=== PATIENT | female | born 1980 | race Caucasian/White ===

== ENCOUNTER 2021-01-02 16:31 | Inpatient (IN) | payer MEDICAID, SELFPAY ==
[2021-01-02 16:36] VITALS: BP 138/79; PULSE 108; RESP 18; TEMP 36.8; O2SAT 97; BMI 23.0
--- NOTE | 2021-01-02 18:11 | PC.NURSE ---
Patient is a 40 year old female that presents as a direct admit from [facility] in [place], accompanied with father for complaint of MHE. Patient has been having paranoid delusional thought process, flat affect with anxiety. Patient explains that she is hearing voices in her head and in her ears. Patient does not know what they are saying and does not want to talk more about it. Patient is reluctant to talk to admitting nurse about health history. Patient did state that she feels she is in danger and that someone is going to kill her. Denies SI at this time.
--- NOTE | 2021-01-02 19:36 | PC.NURSE ---
Pt's mother called to check on pt. Update given that pt is resting quietly. Pt's behavior has been reported stable by off going shift since arrival. Pt's mother given the pt phone number and hours that pt may use/talk on the phone.
[2021-01-02] MEDS: metoprolol tartrate 50 mg Tablet PO (20:49)
[2021-01-02] MEDS: OLANZapine 5 mg ODT PO (20:49)
--- NOTE | 2021-01-02 20:55 | PC.NURSE ---
pt given Zyprexa 5mg po for noted increased anxiety. Pt noted to be very guarded, peering under benches, around corners. Pt had RN show her there was nothing to fear from the linen barrel or linen cabinet.
[2021-01-02 21:21] VITALS: BP 108/81; PULSE 107; RESP 16; TEMP 37.1; O2SAT 96
[2021-01-03] MEDS: trazodone 50 mg Tablet PO (00:12)
[2021-01-03] MEDS: hyDROXYzine 25 mg Capsule 50 MG PO ×3 (00:12→21:36)
--- NOTE | 2021-01-03 00:12 | PC.NURSE ---
pt continues with increased anxiety noted, unable to sleep. Trazodone 50mg po and Vistaril 50mg po given.
[2021-01-03] MEDS: ondansetron 4 MG Tablet PO (00:43)
--- NOTE | 2021-01-03 00:43 | PC.NURSE ---
pt c/o nausea, zofran 4mg po given
[2021-01-03] MEDS: haloperidol 5 mg Tablet PO (01:37)
--- NOTE | 2021-01-03 01:38 | PC.NURSE ---
pt noted with continued paranoias, hearing loud noises, thinking something is going to get her. pt shown to reassure her that doors are lock, windows are locked and covered, other pt's are sleeping. Pt still voiced concern for her safety, so pt was moved to a room closest to the nurses desk (rm [id number]).
--- NOTE | 2021-01-03 01:42 | PC.NURSE ---
pt was also given Haldol 5mg po at this time.
[2021-01-03 05:06] VITALS: BP 130/85; PULSE 118; RESP 210; TEMP 37; O2SAT 97
[2021-01-03] MEDS: metoprolol tartrate 50 mg Tablet PO ×2 (08:48→21:37)
--- NOTE | 2021-01-03 10:53 | P.HP_ITS ---
Providers/Chief Complaint Admitting Physician: Aden Epstein DO Primary Care Provider: Wilian Chang MD Chief Complaint: PSYCHOSIS HPI NPU History of Present Illness Solitario Araujo is a 40 year old female with longstanding history of substance abuse presented to an [facility] emergency department with unclear report of suicidal ideation in the context of worsening psychotic symptoms including paranoia and auditory hallucinations. Patient states that she believes people are following her and watching her and out to get her. Patient also reports ongoing depressive symptoms with intermittent passive suicidal thoughts with no active intent or plan and no past history of suicide attempt or self-harm behavior. Patient reports last use of substances including marijuana, Adderall and something that she thought was Percocet but she is not sure was approximately 5 days ago. Patient states that she has been having ongoing paranoia as well as auditory hallucinations. She also reports worsening depressive symptoms with increasing impairment. Patient states that she has had a couple of occasions in which she has been sober for approximately 6 weeks and continues to have episodes of flight of ideas, stating that she feels like she has not her normal self but has difficulty describing any discrete hypomanic or manic episodes. Psychiatric review of systems is otherwise negative. Patient reports currently living with boyfriend and one of her children but states that she has her other 2 children on occasion. Review of Systems General: Reports: 10 or more systems reviewed and unremarkable except in HPI and below Meds NPU Home Medications Medication Instructions Recorded Confirmed Last Taken Type metoprolol tartrate [Lopressor] 50 mg PO BID 01/02/21 01/02/21 01/02/21 08:14 History 50 mg Allergies Allergy/AdvReac Type Severity Reaction Status Date / Time brompheniramine Allergy ADR-Halluci Verified 01/02/21 17:24 nating phenylpropanolamine Allergy ADR-Halluci Verified 01/02/21 17:24 nating pseudoephedrine Allergy ADR-Agitate Verified 01/02/21 17:24 d PFSH NPU PFSH: Family History Mother Allergies Depression Hypertension Sister Allergies Hyperlipidemia Grandfather Diabetes Grandmother Diabetes Hypertension Social History Smoking and tobacco status: current every day smoker cigarettes Packs smoked per day: 1 Years cigarettes smoked: 20 Quit status (tobacco): not considering quitting Second hand smoke exposure: No Smoking risk assessment/counseling performed?: Yes Alcohol intake: former Year of sobriety/quit date alcohol: 2018 Desire information about alcohol rehabilitation?: No Counseling given: No Last alcohol use date: 12/31/17 Substance/Drug Use: current Substance/Drug use frequency: other Substance/Drug use type: Marijuana, Crack/Cocaine, Amphetamines, Sedatives, Opiates and Methamphetamine Desire information about substance/drug rehabilitation?: No Counseling given: No Adopted: No Caregiver/support person: Yes Lives independently: No Household members: family Housing: House Marital status: Single Highest education level completed: High School Graduate service: No Current occupational status: unemployed History of recent travel: No Special eneida needs: No Agree to transfusion: No Other Psychiatric History: Other Psychiatric History: Patient states that is been a couple of years since the last time she saw a psychiatrist or therapist Reports being noncompliant with past medication and medication management follow-up Reports last psychiatric hospitalization was several years ago Denies any past history of suicide attempts or self-harm behavior Mental Status Exam MSE Comments: Thin, appropriately groomed and dressed wearing hospital scrubs, quiet, averted gaze at times, calm, cooperative Psychomotor activity is decreased, no agitation Speech is low volume, normal rate, spontaneous, clear articulation, not pressured I am okay, constricted affect, not labile Alert and oriented to person, place, time, situation Memory and concentration appear to be fair per interview Intellectual functioning appears to be average based on vocabulary, interview Thought process, some delay, linear, no flight of ideas, no looseness of associations Thought content, paranoid delusions, does not appear to be attending to any internal stimuli, no suicidal or homicidal ideation Insight and judgment appear to be intact Vitals/I&O/Wt Last Vital Signs Temp 98.6 F 01/03/21 05:06 Pulse 118 H 01/03/21 05:06 Resp 210 H 01/03/21 05:06 BP 130/85 01/03/21 05:06 Pulse Ox 97 01/03/21 05:06 Weight last 48 hrs Weight 58.967 kg A&P Assessment and plan (1) Psychotic disorder: Status: Acute (2) Polysubstance abuse: Status: Acute Additional A&P Information Patient with unclear psychiatric history given ongoing polysubstance abuse presenting currently with paranoid delusions, psychotic symptoms off of medication with last substance use 4 to 5 days ago. Patient would likely benefit from starting antipsychotic and low-dose antidepressant targeting psychotic symptoms and mood symptoms. INVOLUNTARY ADMIT to inpatient psychiatry START olanzapine 5 mg by mouth twice daily targeting psychotic symptoms, mood START fluoxetine 10 mg by mouth daily targeting mood, anxiety Encouraged patient to participate in unit activities to include group sessions, unit milieu Coordinate with social media marketing analyst for post discharge mental health treatment, substance counseling/treatment Involuntary Hold Information 96 Hour Hold: 96 Hour Involuntary Admission: Yes 96 Hour Hold Ending Date: 01/10/21 96 Hour Hold Ending Time: 14:32 Attestations NPU Medical Necessity Statement*: Psychiatric hospitalization appears to be indicated for medication stabilization, coordination for safe discharge Anticipate hospital stay to exceed 2 midnights Time Spent in Patient Care: Greater than 35 minutes (>than 50% of time spent in counselling and/or direct pt care on unit) . Coding Level of Care Code Acute Tank Truck Engine Mechanic for Aleksander Gamino Diagnoses Psychotic disorder F29 Polysubstance abuse F19.10
[2021-01-03] MEDS: fluoxetine 10 mg Capsule PO (12:32)
[2021-01-03] MEDS: OLANZapine 5 mg TABLET PO ×2 (12:32→18:01)
[2021-01-03 13:01] VITALS: BP 123/84; PULSE 85; RESP 16; TEMP 36.6; O2SAT 95
--- NOTE | 2021-01-03 21:40 | PC.NURSE ---
50mg Visteril given for increased anxiety.
[2021-01-03 22:00] VITALS: BP 113/64; PULSE 75; RESP 17; TEMP 36.6; O2SAT 97
--- NOTE | 2021-01-04 05:51 | PC.NURSE ---
PM ASSESSMENT PT HAS SLEPT INTERMITTENTLY ALL NIGHT, NO PAIN, DENIES SI/HI, DENIES AH/VH, IS RELUCTANT TO TALK ABOUT HER USE OF AMPHETAMINES. PT IS CONCERNED THAT SHE WILL TAKE MEDICATIONS THAT ARE ADDICTIVE AND SHE ALREADY STRUGGLES WITH THIS. SHE IS CONCERNED WITH SOME HAIRLOSS IN TIMES OF STRESS, CONCERNED ABOUT HER RELATIONSHIP WITH HER SIGNIFICANT OTHER, AND POSSIBLE CHILD CUSTODY. PT SEEMS TO BE HAVING A HARD TIME PUTTING THOUGHTS IN ORDER, HER SPEECH IS SOMEWHAT DELAYED. STATES, I THINK I HAD A BREAKDOWN.
[2021-01-04 06:00] VITALS: BP 138/90; PULSE 83; RESP 17; TEMP 36.3; O2SAT 97
[2021-01-04] MEDS: fluoxetine 10 mg Capsule PO (08:55)
[2021-01-04] MEDS: OLANZapine 5 mg TABLET PO ×2 (08:55→17:57)
[2021-01-04] MEDS: metoprolol tartrate 50 mg Tablet PO ×2 (08:55→20:30)
--- NOTE | 2021-01-04 13:12 | PM.NPN ---
Subjective NPU Subjective: Interval history: Continues to report paranoia, denies any auditory or visual loose Nations Reports worsening depressive symptoms, denies any interval suicidal ideation Reports intermittent anxiety symptoms, denies any interval panic symptoms States that she has been compliant with her medication, denies any medication side effects Per staff, no interval behavioral disturbances Mental Status Exam MSE Comments: Sitting up in her bed, tired appearing,, appropriately groomed and dressed wearing hospital scrubs, calm, cooperative, good eye contact Psychomotor activity is decreased, no agitation Speech is low volume, normal rate, spontaneous, clear articulation, not pressured I feel depressed, constricted affect, not labile Alert and oriented to person, place, time, situation Memory and concentration appear to be fair per interview Thought process, some delay, linear, no flight of ideas, no looseness of associations Thought content, paranoid delusions, no hallucinations, no suicidal or homicidal ideation Insight and judgment appear to be intact Vitals/I&O/Wt Last Vital Signs Temp 97.4 F L 01/04/21 06:00 Pulse 83 01/04/21 06:00 Resp 17 01/04/21 06:00 BP 138/90 01/04/21 06:00 Pulse Ox 97 01/04/21 06:00 Weight last 48 hrs Weight 58.967 kg A&P Assessment and plan (1) Psychotic disorder: Status: Acute (2) Polysubstance abuse: Status: Acute Additional A&P Information Reports ongoing paranoia, worsening depression INCREASE to fluoxetine 20 mg daily targeting depressive symptoms, mood Involuntary Hold Information 96 Hour Hold: 96 Hour Involuntary Admission: Yes 96 Hour Hold Ending Date: 01/10/21 96 Hour Hold Ending Time: 14:32 Attestations NPU Medical Necessity Statement*: Continues to require psychiatric hospitalization for medication stabilization Coding Level of Care Code Acute Tea Room Manager for Aleksander Fwkeshia Diagnoses Psychotic disorder F29 Polysubstance abuse F19.10
[2021-01-04 13:57] VITALS: BP 121/80; PULSE 78; RESP 17; TEMP 37.1; O2SAT 97
--- NOTE | 2021-01-04 19:53 | PC.NURSE ---
Patient pulled me aside and asked if there was any way we could turn off the music, I asked her where she thought the music was coming from amd she said the nurse station door. I told her that she was probably just hearing us talk in the nurses station and she said no i heard my boy cry in there
[2021-01-04] MEDS: haloperidol 5 mg Tablet PO (20:31)
--- NOTE | 2021-01-04 20:31 | PC.NURSE ---
Addendum entered by Nighat Boston RN 01/04/21 22:46: Pt is not hearing the voices as loudly. Pt is feeling anxious but it is less. Pt is less paranoid. Requested Sleep medication and anxiety med. Original Note: Haldol 5 mg PO given for paranoid delusions and Auditory Hallucinations. Pt is checking every door in the female hallway, eyes are wide, pt states, Im hearing voices- my sons are calling me and she is looking into the dayroom.
[2021-01-04 20:55] VITALS: BP 139/93; PULSE 76; RESP 18; TEMP 36.8; O2SAT 97
[2021-01-04] MEDS: hyDROXYzine 25 mg Capsule 50 MG PO (22:48)
[2021-01-04] MEDS: trazodone 50 mg Tablet PO (22:49)
--- NOTE | 2021-01-04 22:50 | PC.NURSE ---
visteril/trazodone Visteril 50mg PO given for anxiety, Trazodone 50mg PO given to help pt sleep
[2021-01-04] MEDS: acetaminophen 325 mg Tablet 650 MG PO (23:41)
[2021-01-04] MEDS: ondansetron 4 MG Tablet PO (23:41)
--- NOTE | 2021-01-04 23:54 | PC.NURSE ---
PM Assessment Pt denies HI, endorses feeling depressed with some SI thoughts, no plan. Denied pain at this time. Pt is searching every room on the female durbin and dayroom for the AH-Voices of her sons calling for her, she kept placing her hands over her ears, saying turn the music down. There was no music playing in the unit. Pt denies VH at this time. Pt did come to the nurses station after receiving PRN Haldol, stated the voices were less, but that she was still anxious and tired but could not sleep.Nurse administered Trazodone and Visteril for this. Pt slept for about 2 hours. She was awakened by lab coming into the unit. Pt came to nurses station stated she had pain in her left ear and a headache, received tylenol for this and she went back to bed. Pt is much calmer, states the voices are very quiet now like whispers.
[2021-01-05 06:00] VITALS: BP 138/94; PULSE 106; RESP 18; TEMP 36.8; O2SAT 97
--- NOTE | 2021-01-05 07:19 | PC.RESP ---
SMOKING CESSATION INFORMATION SENT TO PATIENT.
[2021-01-05] MEDS: OLANZapine 5 mg TABLET PO (08:55)
[2021-01-05] MEDS: fluoxetine 10 mg Capsule 20 MG PO (08:56)
[2021-01-05] MEDS: metoprolol tartrate 50 mg Tablet PO ×2 (09:22→20:06)
[2021-01-05] MEDS: OLANZapine 5 mg ODT PO (09:58)
[2021-01-05] MEDS: haloperidol 5 mg Tablet PO ×2 (11:02→21:36)
--- NOTE | 2021-01-05 11:07 | PC.NURSE ---
Addendum entered by Peyton Lopez LPN 01/05/21 11:08: 1058 follow up with pt, pt still hearing voices and they are getting louder also experiencing visual hallucinations as well. continuing to monitor. Original Note: 0958 administered Zyprexa Zydis 5mg for pt c/o hearing voices. will continue to monitor.
--- NOTE | 2021-01-05 11:11 | PC.NURSE ---
PRN 11:02 administered Haldol 5mg for visual and auditory hallucinations getting stronger after having Zyprexa Zydis 1 hour prior. Will continue to monitor pt until end of shift.
--- NOTE | 2021-01-05 11:53 | PM.NPN ---
Subjective NPU Subjective: Interval history: Per staff, multiple episodes of patient stating that she was experiencing worsening auditory and visual hallucinations and has been paranoid Ongoing depressive symptoms, denies any interval suicidal ideation Reports intermittent anxiety symptoms, denies any interval panic symptoms States that she has been compliant with her medication, denies any medication side effects Mental Status Exam MSE Comments: Sitting up next to her bed, patient has a vacant look on her face and appears to be lost but is calm, cooperative, good eye contact Psychomotor activity is decreased, no agitation Speech is low volume, normal rate, spontaneous, clear articulation, not pressured I feel like I am forgetting things, flat affect, not labile Alert and oriented to person, place, time, situation Memory and concentration appear to be fair per interview Thought process, some delay, linear, no flight of ideas, no looseness of associations Thought content, paranoid delusions, no hallucinations, no suicidal or homicidal ideation Insight and judgment appear to be intact Vitals/I&O/Wt Last Vital Signs Temp 98.2 F 01/05/21 06:00 Pulse 106 H 01/05/21 06:00 Resp 18 01/05/21 06:00 BP 138/94 01/05/21 06:00 Pulse Ox 97 01/05/21 06:00 A&P Assessment and plan (1) Psychotic disorder: Status: Acute (2) Polysubstance abuse: Status: Acute Additional A&P Information Continuing to act bizarrely, reporting worsening hallucinations INCREASE to olanzapine 10 mg twice daily targeting psychotic symptoms, continue to monitor Involuntary Hold Information 96 Hour Hold: 96 Hour Involuntary Admission: Yes 96 Hour Hold Ending Date: 01/10/21 96 Hour Hold Ending Time: 14:32 Attestations NPU Medical Necessity Statement*: Continues to require psychiatric hospitalization for medication stabilization Coding Level of Care Code Acute Enrollment Processor for Aleksander Gamino Diagnoses Psychotic disorder F29 Polysubstance abuse F19.10
[2021-01-05 13:07] VITALS: BP 144/88; PULSE 104; RESP 17; TEMP 37; O2SAT 97
[2021-01-05] MEDS: hyDROXYzine 25 mg Capsule 50 MG PO (16:34)
[2021-01-05] MEDS: OLANZapine 5 mg TABLET 10 MG PO (17:32)
[2021-01-05] MEDS: trazodone 50 mg Tablet PO (20:06)
--- NOTE | 2021-01-05 21:44 | PC.NURSE ---
The patient reported difficulty falling asleep. She requested and was given Trazodone 50 mg po. Encouraged her to be in bed within 30 minutes.
[2021-01-05 22:00] VITALS: BP 122/78; PULSE 68; RESP 18; TEMP 36.9; O2SAT 98
[2021-01-06] MEDS: acetaminophen 325 mg Tablet 650 MG PO ×2 (05:41→16:47)
[2021-01-06 06:00] VITALS: BP 142/84; PULSE 84; RESP 18; TEMP 36.7; O2SAT 94
[2021-01-06] MEDS: hyDROXYzine 25 mg Capsule 50 MG PO ×2 (06:04→20:53)
--- NOTE | 2021-01-06 06:10 | PC.NURSE ---
I noticed that her blood pressure was a little high when i took it with the automatic cuff so I her blood pressure manually and it was 135/80
--- NOTE | 2021-01-06 06:29 | PC.NURSE ---
The patient complained of anxiety and was given Vistaril 50 mg po per her request.
[2021-01-06] MEDS: fluoxetine 10 mg Capsule 20 MG PO (07:58)
[2021-01-06] MEDS: metoprolol tartrate 50 mg Tablet PO ×2 (07:59→19:59)
[2021-01-06] MEDS: OLANZapine 5 mg TABLET 10 MG PO ×2 (07:59→17:21)
--- NOTE | 2021-01-06 12:07 | PM.NPN ---
Subjective NPU Subjective: Interval history: Patient reports having some difficulty remembering things since her admission, states that she feels a little bit spaced out. She does report improvement in auditory and visual hallucinations but states that she continues to have some intermittent episodes of hallucinations Reports occasional depressed symptoms, continues to report passive suicidal thoughts with no active intent or plan Reports being compliant with her medication, denies any medication side effects Mental Status Exam MSE Comments: Sitting in the day room, somewhat vacant look on her face but acknowledges and participates in interview, calm, cooperative, good eye contact Psychomotor activity is neither increased nor decreased, no agitation Speech is low volume, normal rate, spontaneous, clear articulation, not pressured I feel okay, flat affect, not labile Alert and oriented to person, place, time, situation Memory and concentration appear to be fair per interview Thought process, some delay, linear, no flight of ideas, no looseness of associations Thought content, paranoid delusions, no hallucinations, no suicidal or homicidal ideation Insight and judgment appear to be intact Vitals/I&O/Wt Last Vital Signs Temp 98.1 F 01/06/21 06:00 Pulse 84 01/06/21 06:00 Resp 18 01/06/21 06:00 BP 142/84 01/06/21 06:00 Pulse Ox 94 01/06/21 06:00 A&P Assessment and plan (1) Psychotic disorder: Status: Acute (2) Polysubstance abuse: Status: Acute Additional A&P Information Continues to report psychotic symptoms, mood symptoms, passive suicidal thoughts CONTINUE current medication, continue to monitor Involuntary Hold Information 96 Hour Hold: 96 Hour Involuntary Admission: Yes 96 Hour Hold Ending Date: 01/10/21 96 Hour Hold Ending Time: 14:32 Attestations NPU Medical Necessity Statement*: Continues to require psychiatric hospitalization for medication stabilization Coding Level of Care Code Acute Adult Nurse Practitioner for Aleksander Gamino Diagnoses Psychotic disorder F29 Polysubstance abuse F19.10
[2021-01-06 14:00] VITALS: BP 128/83; PULSE 77; RESP 17; TEMP 36.5; O2SAT 96
[2021-01-06 20:37] VITALS: BP 104/75; PULSE 84; RESP 20; TEMP 36.5; O2SAT 96
[2021-01-06] MEDS: trazodone 50 mg Tablet PO (20:53)
[2021-01-07] MEDS: acetaminophen 325 mg Tablet 650 MG PO ×4 (02:03→21:04)
[2021-01-07] MEDS: OLANZapine 5 mg ODT PO ×2 (02:04→13:45)
[2021-01-07 06:00] VITALS: BP 126/85; PULSE 106; RESP 21; TEMP 37; O2SAT 97
[2021-01-07] MEDS: OLANZapine 5 mg TABLET 10 MG PO (08:35)
[2021-01-07] MEDS: metoprolol tartrate 50 mg Tablet PO ×2 (08:35→20:18)
[2021-01-07] MEDS: fluoxetine 10 mg Capsule 20 MG PO (08:35)
--- NOTE | 2021-01-07 11:52 | PM.NPN ---
Subjective NPU Subjective: Interval history: Reports ongoing, worsening auditory hallucinations with little to no improvement per patient Reports ongoing depressive symptoms Reports appetite is been fair Reports that her sleep has been fair to good Per staff report, continues to request as needed medication for auditory hallucinations no interval behavioral disturbances Mental Status Exam MSE Comments: Appropriately groomed and dressed, calm, cooperative, good eye contact Psychomotor activity is neither increased nor decreased, no agitation Speech is low volume, normal rate, spontaneous, clear articulation, not pressured I feel fine, flat affect, not labile Alert and oriented to person, place, time, situation Memory and concentration appear to be fair per interview Thought process, some delay, linear, no flight of ideas, no looseness of associations Thought content, paranoid delusions, no hallucinations, no suicidal or homicidal ideation Insight and judgment appear to be intact Vitals/I&O/Wt Last Vital Signs Temp 98.6 F 01/07/21 06:00 Pulse 106 H 01/07/21 06:00 Resp 21 H 01/07/21 06:00 BP 126/85 01/07/21 06:00 Pulse Ox 97 01/07/21 06:00 A&P Assessment and plan (1) Psychotic disorder: Status: Acute (2) Polysubstance abuse: Status: Acute Additional A&P Information Ongoing auditory hallucinations, worsening depressive symptoms INCREASE to fluoxetine 40 mg daily targeting depressive symptoms INCREASE to olanzapine 10 mg daily and olanzapine 20 mg at bedtime Involuntary Hold Information 96 Hour Hold: 96 Hour Involuntary Admission: Yes 96 Hour Hold Ending Date: 01/10/21 96 Hour Hold Ending Time: 14:32 Attestations NPU Medical Necessity Statement*: Continues to require psychiatric hospitalization for medication stabilization Coding Level of Care Code Acute Ingredient Specialist for Aleksander Gamino Diagnoses Psychotic disorder F29 Polysubstance abuse F19.10
--- NOTE | 2021-01-07 13:48 | PC.NURSE ---
Addendum entered by Ubaldo Centeno RN 01/07/21 15:00: PT IN BED O S/S OF DISTRESS, WILL CONTINUE TO MONITOR. Original Note: PRN MED PT GIVEN 5MG ZYPREXA FOR C/O A/V HALLUCINATIONS, WILL CONTINUE TO MONITOR.
[2021-01-07 14:00] VITALS: BP 128/78; PULSE 64; RESP 18; TEMP 36.3; O2SAT 98
[2021-01-07] MEDS: OLANZapine 10 mg TABLET 20 MG PO (20:18)
[2021-01-07 20:25] VITALS: BP 118/84; PULSE 72; RESP 23; TEMP 36.6; O2SAT 95
[2021-01-07] MEDS: ondansetron 4 MG Tablet PO (22:04)
[2021-01-07] MEDS: hyDROXYzine 25 mg Capsule 50 MG PO (22:10)
[2021-01-08] MEDS: haloperidol 5 mg Tablet PO ×2 (00:03→20:11)
--- NOTE | 2021-01-08 00:31 | PC.NURSE ---
pt given Haldol 5mg po for continued restlessness.
[2021-01-08 06:00] VITALS: BP 148/84; PULSE 69; RESP 20; TEMP 36.6; O2SAT 95
[2021-01-08] MEDS: fluoxetine 10 mg Capsule 40 MG PO (08:17)
[2021-01-08] MEDS: OLANZapine 5 mg TABLET 10 MG PO (08:17)
[2021-01-08] MEDS: acetaminophen 325 mg Tablet 650 MG PO ×2 (09:17→16:22)
[2021-01-08] MEDS: metoprolol tartrate 50 mg Tablet PO ×2 (09:17→20:11)
--- NOTE | 2021-01-08 09:17 | PC.NURSE ---
PRN Tylenol give for headache.
--- NOTE | 2021-01-08 09:49 | PC.NURSE ---
Patient resting in bed, states headache is better.
--- NOTE | 2021-01-08 09:50 | PM.NPN ---
Subjective NPU Subjective: Interval history: Patient continues report some auditory hallucinations Continues to report severe depressive symptoms Per staff, patient continues to get up and interact on the milieu with persisting odd interactions and behaviors Mental Status Exam MSE Comments: Lying in her bed, good eye contact, appropriately groomed and dressed, calm, cooperative Psychomotor activity is neither increased nor decreased, no agitation Speech is low volume, normal rate, spontaneous, clear articulation, not pressured I feel depressed, flat affect, not labile Alert and oriented to person, place, time, situation Memory and concentration appear to be fair per interview Thought process, occasional delay, linear, no flight of ideas, no looseness of associations Thought content, paranoid delusions, no hallucinations, no suicidal or homicidal ideation Insight and judgment appear to be intact Vitals/I&O/Wt Last Vital Signs Temp 97.8 F 01/08/21 06:00 Pulse 69 01/08/21 06:00 Resp 20 H 01/08/21 06:00 BP 148/84 01/08/21 06:00 Pulse Ox 95 01/08/21 06:00 A&P Assessment and plan (1) Psychotic disorder: Status: Acute Qualifiers: Psychosis type: unspecified psychosis type Qualified Code(s): F29 - Unspecified psychosis not due to a substance or known physiological condition (2) Polysubstance abuse: Status: Acute Additional A&P Information Ongoing auditory hallucinations, depressive symptoms CONTINUE current medication, continue to monitor Involuntary Hold Information 96 Hour Hold: 96 Hour Involuntary Admission: Yes 96 Hour Hold Ending Date: 01/10/21 96 Hour Hold Ending Time: 14:32 Attestations NPU Medical Necessity Statement*: Continues to require psychiatric hospitalization for medication stabilization Coding Level of Care Code Acute Family Resource Management Specialist for [facility] Stevenson Diagnoses Psychotic disorder F29 Psychosis type: unspecified psychosis type Polysubstance abuse F19.10
[2021-01-08] MEDS: OLANZapine 5 mg ODT PO (12:51)
[2021-01-08 14:00] VITALS: BP 127/85; PULSE 77; RESP 18; TEMP 36.3; O2SAT 98
--- NOTE | 2021-01-08 15:02 | PC.NUTR ---
Nutrition assessment completed for LOS per policy. Noted average intake of 31% meals since admit. Recommend Boost Breeze BID to provide additional kcal/protein, and to obtain current weight. Recommend encourage po intakes at meals to optimize nutrition. See RD assessment for further details.
--- NOTE | 2021-01-08 17:43 | PC.NURSE ---
Patient up at the nurses station that she is hearing and seeing things and is wanting something to help with that.
[2021-01-08] MEDS: OLANZapine 10 mg TABLET 20 MG PO (20:11)
[2021-01-08] MEDS: trazodone 50 mg Tablet PO (20:11)
--- NOTE | 2021-01-08 20:49 | PC.NURSE ---
pt requested sleep and anxiety meds. Trazodone 50mg po and Haldol 5mg po given.
[2021-01-08 22:00] VITALS: BP 121/76; PULSE 58; RESP 18; TEMP 36.4; O2SAT 97
[2021-01-09 05:44] VITALS: BP 131/73; PULSE 79; RESP 20; TEMP 36.8; O2SAT 96
[2021-01-09] MEDS: acetaminophen 325 mg Tablet 650 MG PO ×2 (06:09→12:32)
[2021-01-09] MEDS: hyDROXYzine 25 mg Capsule 50 MG PO (06:09)
--- NOTE | 2021-01-09 06:12 | PC.NURSE ---
pt came to desk, requesting tylenolo for a headache and the medison for my voices . Tylenol 650mg po and Vistaril 50mg po given.
[2021-01-09] MEDS: OLANZapine 5 mg TABLET 10 MG PO (09:06)
[2021-01-09] MEDS: fluoxetine 10 mg Capsule 40 MG PO (09:06)
[2021-01-09] MEDS: metoprolol tartrate 50 mg Tablet PO ×2 (09:07→20:58)
--- NOTE | 2021-01-09 12:28 | PM.NPN ---
Subjective NPU Subjective: Interval history: Reports ongoing auditory hallucinations, some paranoia Reports ongoing depressive symptoms, denies any interval suicidal ideation States that she has been compliant with her medication and denying any medication side effects Per staff, patient appears somewhat confused but continues to come to the nurses station every hour asking for additional medication because of her auditory hallucinations Mental Status Exam MSE Comments: Sitting up on her bed, calm, cooperative, good eye contact Psychomotor activity is neither increased nor decreased, no agitation Speech is low volume, normal rate, spontaneous, clear articulation, not pressured I still hear things, flat affect, not labile Alert and oriented to person, place, time, situation Memory and concentration appear to be fair per interview Thought process, occasional delay, linear, no flight of ideas, no looseness of associations Thought content, paranoid delusions, does not appear to be attending to any internal stimuli, no suicidal or homicidal ideation Insight and judgment appear to be intact Vitals/I&O/Wt Last Vital Signs Temp 98.2 F 01/09/21 05:44 Pulse 79 01/09/21 05:44 Resp 20 H 01/09/21 05:44 BP 131/73 01/09/21 05:44 Pulse Ox 96 01/09/21 05:44 A&P Assessment and plan (1) Psychotic disorder: Status: Acute Qualifiers: Psychosis type: unspecified psychosis type Qualified Code(s): F29 - Unspecified psychosis not due to a substance or known physiological condition (2) Polysubstance abuse: Status: Acute Additional A&P Information Patient continues to request medication every hour for auditory hallucinations, continues to report depressive symptoms CONTINUE current medication, continue to monitor Involuntary Hold Information 96 Hour Hold: 96 Hour Involuntary Admission: Yes 96 Hour Hold Ending Date: 01/10/21 96 Hour Hold Ending Time: 14:32 Attestations NPU Medical Necessity Statement*: Continues to require psychiatric hospitalization for medication stabilization Coding Level of Care Code 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
--- NOTE | 2021-01-09 12:51 | PC.NURSE ---
Patient came to the nurses station stating I am here voices, and seeing things . Tylenol and Zyprexa given.
[2021-01-09 14:00] VITALS: BP 139/78; PULSE 79; RESP 20; TEMP 37; O2SAT 96
[2021-01-09] MEDS: trazodone 50 mg Tablet PO (20:59)
[2021-01-09] MEDS: OLANZapine 10 mg TABLET 20 MG PO (20:59)
--- NOTE | 2021-01-09 21:51 | PC.NURSE ---
Pt requested sleeping pill , pt educated that when HS meds are given a sleep med would be given.
--- NOTE | 2021-01-09 21:55 | PC.NURSE ---
at 2028, Trazodone 50mg po given.
[2021-01-09 21:59] VITALS: BP 111/65; PULSE 66; RESP 18; TEMP 36.6; O2SAT 96
[2021-01-10 06:00] VITALS: BP 138/89; PULSE 78; RESP 18; TEMP 36.6; O2SAT 93
[2021-01-10] MEDS: acetaminophen 325 mg Tablet 650 MG PO ×3 (06:32→21:10)
[2021-01-10] MEDS: metoprolol tartrate 50 mg Tablet PO ×2 (08:04→19:48)
[2021-01-10] MEDS: fluoxetine 10 mg Capsule 40 MG PO (08:04)
[2021-01-10] MEDS: OLANZapine 5 mg TABLET 10 MG PO (08:04)
--- NOTE | 2021-01-10 10:01 | P.PN_ITS ---
Subjective NPU Subjective: Interval history: Continues to report auditory hallucinations with no change, denies any delusions Continues to report depressive symptoms, 5-6/10, denies any interval suicidal ideation Reports fair appetite Reports that her sleep has been fair Per staff, no interval behavioral disturbances, continues to repeatedly ask for medication for auditory hallucinations Mental Status Exam MSE Comments: Appropriately groomed and dressed, calm, interactive, good eye contact Psychomotor activity is neither increased nor decreased, no agitation Speech is low volume, normal rate, spontaneous, clear articulation, not pressured I feel horrible, flat affect, not labile Alert and oriented to person, place, time, situation Memory and concentration appear to be fair per interview Thought process, occasional delay, linear, no flight of ideas, no looseness of associations Thought content, paranoid delusions, does not appear to be attending to any internal stimuli, no suicidal or homicidal ideation Insight and judgment appear to be intact Vitals/I&O/Wt Last Vital Signs Temp 97.9 F 01/10/21 06:00 Pulse 78 01/10/21 06:00 Resp 18 01/10/21 06:00 BP 138/89 01/10/21 06:00 Pulse Ox 93 01/10/21 06:00 A&P Assessment and plan (1) Psychotic disorder: Status: Acute Qualifiers: Psychosis type: unspecified psychosis type Qualified Code(s): F29 - Unspecified psychosis not due to a substance or known physiological condition (2) Polysubstance abuse: Status: Acute Additional A&P Information Ongoing auditory hallucinations with no improvement. 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
[2021-01-10] MEDS: ARIPiprazole 30 mg Tablet 15 MG PO (10:27)
[2021-01-10 13:27] VITALS: BP 108/69; PULSE 69; RESP 16; TEMP 36.7; O2SAT 97
--- NOTE | 2021-01-10 15:06 | PC.NURSE ---
1504 administered tylenol 650mg for pt c/o headache 6/10 on pain scale. will continue to monitor.
[2021-01-10] MEDS: ondansetron 4 MG Tablet PO (17:46)
[2021-01-10 19:28] VITALS: BP 145/80; PULSE 76; RESP 16; TEMP 36.7; O2SAT 97
[2021-01-10] MEDS: trazodone 50 mg Tablet PO (19:48)
--- NOTE | 2021-01-10 19:51 | PC.NURSE ---
pt given Trazodone 50mg po per pt's request at 1900 for a sleeping pill.
[2021-01-11] MEDS: acetaminophen 325 mg Tablet 650 MG PO ×3 (02:23→18:19)
[2021-01-11 06:00] VITALS: BP 132/79; PULSE 64; RESP 15; TEMP 36.8; O2SAT 97
[2021-01-11] MEDS: ondansetron 4 MG Tablet PO (06:55)
[2021-01-11] MEDS: fluoxetine 10 mg Capsule 40 MG PO (07:49)
[2021-01-11] MEDS: metoprolol tartrate 50 mg Tablet PO ×2 (07:49→20:18)
[2021-01-11] MEDS: ARIPiprazole 30 mg Tablet 15 MG PO (07:50)
[2021-01-11] MEDS: nicotine 21 mg Patch 1 PATCH TRANSDERMA (08:01)
--- NOTE | 2021-01-11 09:42 | PM.NPN ---
Subjective NPU Subjective: Interval history: Patient reports improvement in her mood as well as significant decrease in her auditory hallucinations Continues to report some difficulty initiating and maintaining sleeping Reports improving appetite States that she has been compliant with medication, denies any medication side effects Mental Status Exam MSE Comments: Sitting up on her bed, good eye contact, appropriately groomed and dressed, polite, interactive Psychomotor activity is neither increased nor decreased, no agitation Speech is normal volume, normal rate, spontaneous, clear articulation, not pressured I feel better today, full range of affect, not labile Alert and oriented to person, place, time, situation Memory and concentration appear to be fair per interview Thought process, occasional delay, linear, no flight of ideas, no looseness of associations Thought content, no stated delusions, does not appear to be attending to any internal stimuli, no suicidal or homicidal ideation Insight and judgment appear to be intact Vitals/I&O/Wt Last Vital Signs Temp 98.3 F 01/11/21 06:00 Pulse 64 01/11/21 06:00 Resp 15 01/11/21 06:00 BP 132/79 01/11/21 06:00 Pulse Ox 97 01/11/21 06:00 A&P Assessment and plan (1) Psychotic disorder: Status: Acute Qualifiers: Psychosis type: unspecified psychosis type Qualified Code(s): F29 - Unspecified psychosis not due to a substance or known physiological condition (2) Polysubstance abuse: Status: Acute Additional A&P Information Reports improving mood and decrease in psychotic symptoms CONTINUE current medication, continue to monitor Involuntary Hold Information 96 Hour Hold: 96 Hour Involuntary Admission: Yes 96 Hour Hold Ending Date: 01/10/21 96 Hour Hold Ending Time: 14:32 Attestations NPU Medical Necessity Statement*: Continues to require psychiatric hospitalization for medication stabilization Coding Level of Care 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
[2021-01-11] MEDS: OLANZapine 5 mg ODT PO (11:13)
--- NOTE | 2021-01-11 13:17 | PC.NURSE ---
PRN 1113 administered Zyprexa Zydis 5mg for pt c/o anxiety, Auditory Rivera, Visual Rivera. will continue to monitor pt until end of shift.
--- NOTE | 2021-01-11 13:37 | PC.NURSE ---
1136 administered tylenol 650mg for pt c/o tooth pain. will continue to monitor pt.
[2021-01-11 14:00] VITALS: BP 134/80; PULSE 79; RESP 15; TEMP 37; O2SAT 97
[2021-01-11] MEDS: hyDROXYzine 25 mg Capsule 50 MG PO (17:29)
--- NOTE | 2021-01-11 18:22 | PC.NURSE ---
taylern 1819 Administered tylenol 650mg for pt c/o toothache, will continue to monitor the pt.
[2021-01-11 19:46] VITALS: BP 121/83; PULSE 83; RESP 20; TEMP 36.6; O2SAT 97
--- NOTE | 2021-01-11 22:16 | PC.NURSE ---
Broken Sleep Pt has a hard time going to sleep but also staying asleep. She is easily awakened and has a difficult time returning to sleep once awake. pt denies any ah/vh/si/hi this shift. pt is much clearer than upon admission.
[2021-01-12] MEDS: hyDROXYzine 25 mg Capsule 50 MG PO ×2 (00:55→22:07)
[2021-01-12] MEDS: trazodone 50 mg Tablet PO ×2 (00:55→22:07)
--- NOTE | 2021-01-12 02:28 | PC.NURSE ---
At 0055 the patient was given Trazodone 50 mg po for complaint of insomnia, and Vistaril 50 mg po for complaint of anxiety. At this time the patient is sleeping.
[2021-01-12 06:00] VITALS: BP 117/73; PULSE 68; RESP 19; TEMP 36.7; O2SAT 97
[2021-01-12] MEDS: ARIPiprazole 30 mg Tablet 15 MG PO (07:36)
[2021-01-12] MEDS: fluoxetine 10 mg Capsule 40 MG PO (07:36)
[2021-01-12] MEDS: metoprolol tartrate 50 mg Tablet PO ×2 (07:37→21:30)
[2021-01-12] MEDS: acetaminophen 325 mg Tablet 650 MG PO ×2 (07:38→17:05)
--- NOTE | 2021-01-12 07:42 | PC.NURSE ---
prn 0738 Administered tylenol 650mg for pt c/o toothache and slight headache at this time, will continue to monitor.
[2021-01-12] MEDS: nicotine 21 mg Patch 1 PATCH TRANSDERMA (07:49)
--- NOTE | 2021-01-12 10:25 | PM.NPN ---
Subjective NPU Subjective: Interval history: Solitario presents today reporting that she feels like she is doing better than when she first got here. She reports that she and Dr. Epstein started Abilify and she feels its been effective. She endorses a plan to likely stay with her mother for few days as he continues to be stable then she wants to return to her apartment. She reports that when she lives in the apartment is her and her 2-year-old son who is currently with his father. She reports that she was having auditory visual hallucinations but she is not having that now. We discussed maintaining some collateral information and considering possible discharge tomorrow. Mental Status Exam MSE Comments: This is a well-nourished well-developed white female with hospital scrubs on with adequate grooming and eye contact. No abnormal movements, cooperative with exam and no acute distress. Speech was normal rate and volume. Mood described as better, affect slightly subdued. Thought process organized. Thought content: Patient denied suicidal or homicidal ideations, there were no delusions reported or noted, she denied any auditory or visual hallucinations. Attention and concentration appeared intact and memory appeared reliable but none were formally tested. She is alert and oriented x3. Insight and judgment appear fair, impulse control appears fair.. Vitals/I&O/Wt Last Vital Signs Temp 98.0 F 01/12/21 06:00 Pulse 68 01/12/21 06:00 Resp 19 H 01/12/21 06:00 BP 117/73 01/12/21 06:00 Pulse Ox 97 01/12/21 06:00 A&P Assessment and plan (1) Psychotic disorder: Status: Acute Qualifiers: Psychosis type: unspecified psychosis type Qualified Code(s): F29 - Unspecified psychosis not due to a substance or known physiological condition (2) Polysubstance abuse: Status: Acute Additional A&P Information This is a 39-year-old white female with a history of psychosis and initially started on Abilify with positive effect showing some improvement. 1. Continue current medication. 2. Continue every 15 minute checks for safety. 3. Encourage individual, group and milieu therapies. 4. Encourage sober living treatment after discharge at the highest level of care to which he is willing to commit. 5. We will likely discharge in next 48 hours. Involuntary Hold Information 96 Hour Hold: 96 Hour Involuntary Admission: Yes 96 Hour Hold Ending Date: 01/10/21 96 Hour Hold Ending Time: 14:32 Attestations NPU Medical Necessity Statement*: Inpatient hospitalization is medically necessary and the clinically appropriate intervention at this time. We will monitor medications and make changes as indicated. Likely length of stay 1-3 days. 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
[2021-01-12] MEDS: ondansetron 4 MG Tablet PO ×2 (11:17→20:48)
[2021-01-12] MEDS: OLANZapine 5 mg ODT PO ×2 (11:31→22:07)
[2021-01-12 14:00] VITALS: BP 116/76; PULSE 73; RESP 18; TEMP 36.6; O2SAT 98
[2021-01-12] MEDS: ibuprofen 800 mg tablet PO ×2 (18:03→20:47)
[2021-01-12] MEDS: benzocaine 20% 7 gm 1 APPLIC MUCOUS MEM (18:04)
[2021-01-12 22:00] VITALS: BP 150/88; PULSE 73; RESP 18; TEMP 36.8; O2SAT 95
[2021-01-13] MEDS: hyDROXYzine 25 mg Capsule 50 MG PO (03:15)
--- NOTE | 2021-01-13 03:16 | PC.NURSE ---
50mg vistaril given for anxiety / sleep.
[2021-01-13 06:00] VITALS: BP 148/72; PULSE 78; RESP 17; TEMP 36.5; O2SAT 98
[2021-01-13] MEDS: ibuprofen 800 mg tablet PO ×2 (07:51→16:11)
[2021-01-13] MEDS: fluoxetine 10 mg Capsule 40 MG PO (08:16)
[2021-01-13] MEDS: ARIPiprazole 30 mg Tablet 15 MG PO (08:17)
[2021-01-13] MEDS: metoprolol tartrate 50 mg Tablet PO (08:22)
[2021-01-13] MEDS: nicotine 21 mg Patch 1 PATCH TRANSDERMA (08:32)
--- NOTE | 2021-01-13 11:01 | PC.NUTR ---
Nutrition follow up: PO intakes have improved since last review, now averaging 73%. Continue to recommend obtaining current weight. See RD assessments for further details.
--- NOTE | 2021-01-13 17:40 | P.DS_ITS ---
Diagnoses at Discharge Discharge Diagnosis (1) Psychotic disorder: Status: Acute Qualifiers: Psychosis type: unspecified psychosis type Qualified Code(s): F29 - Unspecified psychosis not due to a substance or known physiological condition (2) Polysubstance abuse: Status: Acute Reason for Visit Reason for Visit: PSYCHOSIS Brief History: Solitario Araujo is a 40 year old female with longstanding history of substance abuse presented to an [facility] emergency department with unclear report of suicidal ideation in the context of worsening psychotic symptoms including paranoia and auditory hallucinations. Patient states that she believes people are following her and watching her and out to get her. Patient also reports ongoing depressive symptoms with intermittent passive suicidal thoughts with no active intent or plan and no past history of suicide attempt or self-harm behavior. Patient reports last use of substances including marijuana, Adderall and something that she thought was Percocet but she is not sure was approximately 5 days ago. Patient states that she has been having ongoing paranoia as well as auditory hallucinations. She also reports worsening depressive symptoms with increasing impairment. Patient states that she has had a couple of occasions in which she has been sober for approximately 6 weeks and continues to have episodes of flight of ideas, stating that she feels like she has not her normal self but has difficulty describing any discrete hypomanic or manic episodes. Psychiatric review of systems is otherwise negative. Patient reports currently living with boyfriend and one of her children but states that she has her other 2 children on occasion. Hospital Course Hospital Course Sulma presented to the [facility] emergency department reporting psychosis and lethality. She was transferred to [facility] and she was admitted to the neuropsychiatric unit for definitive treatment of those issues. On the unit she slowly acclimated to the individual, group and milieu therapies provided. She was started on Prozac and Abilify and those were titrated to effect. She showed marked improvement and was able to contract for safety prior to discharge. During the hospitalization, patient had routine laboratory studies which were within normal limits except for few outliers. Additionally there was a general medical evaluation which was also within normal limits and revealed no new acute processes. Discharge Summary: At the time of discharge, lethality was denied and psychosis was resolving. Mood and anxiety were well managed. Patient endorsed a plan to avoid all drugs of abuse and follow-up with the aftercare recommendations of the treatment team. Patient was evaluated and deemed to be absent credible lethality, and had achieved the maximum benefit from an inpatient hospitalization, so was discharged. Involuntary Hold Information 96 Hour Hold: 96 Hour Involuntary Admission: Yes 96 Hour Hold Ending Date: 01/10/21 96 Hour Hold Ending Time: 14:32 Mental Status Exam MSE Comments: This is a well-nourished well-developed white female with hospital scrubs on with adequate grooming and eye contact. No abnormal movements, cooperative with exam and no acute distress. Speech was normal rate and volume. Mood described as better, affect congruent. Thought process organized. Thought content: Patient denied suicidal or homicidal ideations, there were no delusions reported or noted, she denied any auditory or visual hallucinations. Attention and concentration appeared intact and memory appeared reliable but none were formally tested. She is alert and oriented x3. Insight and judgment appear fair, impulse control appears fair. Discharge Data Vitals: Last Vital Signs Temp 97.7 F 01/13/21 06:00 Pulse 78 01/13/21 06:00 Resp 17 01/13/21 06:00 BP 148/72 01/13/21 06:00 Pulse Ox 98 01/13/21 06:00 Discharge Plan Discharge Patient Disposition: Home Condition: Stable Prescriptions: New trazodone 50 mg Tablet 50 mg PO BEDTIME PRN (Reason: Insomnia) 30 Days Qty: 30 RF: 1 ibuprofen 800 mg Tablet 800 mg PO Q8H PRN (Reason: Moderate Pain) 30 Days Qty: 90 RF: 0 fluoxetine 10 mg Capsule 40 mg PO DAILY 30 Days Qty: 120 RF: 1 hydroxyzine pamoate 25 mg Capsule 50 mg PO Q6H PRN (Reason: Anxiety) 30 Days Qty: 120 RF: 1 aripiprazole 30 mg Tablet 15 mg PO DAILY 30 Days Qty: 15 RF: 1 Continued Lopressor 50 mg tablet 50 mg PO BID RF: 0 Discharge Orders: Discharge Order (Routine); Ordered 01/13/21 Ordered By: Audi Mace Referrals: [facility] [Other] (The facility has information and just walk-in to set up services) [facility] [Outside] Discharge Diet: Regular Discharge Activity: Resume usual activity Patient Instructions: Brief Psychotic Disorder (DC), Opioid Safety Discharge Attestations NPU Time Spent in Discharge Care*: less than 30 min Specific Discharge Activities: Specific discharge activities: educating patient, discussing with onsite case manager/social workers/dc planners, documenting/other paperwork and evaluating patient/reviewing data Coding Level of Care Code Acute [facility] DC note Diagnoses Psychotic disorder F29 Psychosis type: unspecified psychosis type Polysubstance abuse F19.10
[2021-01-13 17:56] VITALS: BP 148/72; PULSE 78; RESP 17; TEMP 36.5; O2SAT 98
--- NOTE | 2021-01-13 22:01 | PC.NURSE ---
RX sent to wrong pharmacy Pt called the unit, she is concerned because her medications were transmitted to the wrong pharmacy. Nurse is contacting appropriate pharmacy and correcting medication issue for pt. Sent to [facility] #[id number], should be sent to [facility] #[id number]... [phone] Medications called in orally to [place] [facility] @0615 01/13/21, by JANIE NAVA, were as follows: 1. aripiprazole 15 mg oral daily 30 Days #15 tab 30 mg Tablet Refills: 1 2. fluoxetine 40 mg oral daily 30 Days #120 cap 10 mg Capsule Refills: 1 3. hydroxyzine pamoate 50 mg oral Q6H as needed 30 Days #120 cap 25 mg Capsule Refills: 1 4. ibuprofen 800 mg oral Q8H as needed 30 Days #90 tab 800 mg Tablet Refills: 0 5. trazodone 50 mg oral bedtime as needed 30 Days #30 tab 50 mg Tablet Refills:1 6.Lopressor 50 mg oral twice a day Refills:1 Pt notified of location correction, educated on medications, administration of these meds, and where to pick them up. Pt phone number: [phone]
== END 2021-01-13 18:14 | disposition home or self-care (01) | DRG 885 ==
PROVIDERS: Admitting Provider Psychiatry & Neurology Psychiatry; PCP Internal Medicine; Visit Provider Psychiatry & Neurology Psychiatry
DX: F29 Unspecified psychosis not due to a substance or known physiological condition (principal); R45.851 Suicidal ideations; F19.10 Other psychoactive substance abuse, uncomplicated; R45.89 Other symptoms and signs involving emotional state; F17.210 Nicotine dependence, cigarettes, uncomplicated
CPT/HCPCS: Q0162